=== PATIENT | female | born 1995 | race Caucasian/White ===

== ENCOUNTER → 2019-08-16 14:42 | Outpatient (CLI) | payer OTHER, SELFPAY ==
[2019-08-18 06:42] LABS: COVID19 Sendout Not Detected (Not Detected)
== END ==
PROVIDERS: Visit Provider Physician Assistant
DX: R50.9 Fever, unspecified (principal)
CPT/HCPCS: 87635

== ENCOUNTER 2020-03-05 10:23 | Emergency (ER) | payer OTHER, SELFPAY ==
[2020-03-05 10:41] VITALS: BP 123/54; PULSE 89; RESP 18; TEMP 37.3; O2SAT 99
--- NOTE | 2020-03-05 10:45 | PC.NURSE ---
pt states she was exposed by a covid coworker a few weeks ago.
[2020-03-05] MEDS: LIDOCAINE PATCH 1 EACH ADH..PATCH TOP (12:45)
[2020-03-05] MEDS: KETOROLAC 60 MG/2 ML VIAL 30 MG IM (12:45)
[2020-03-05] MEDS: CYCLOBENZAPRINE 10 MG TABLET PO (12:46)
--- NOTE | 2020-03-05 12:49 | ED.BACK ---
HPI - Back Pain/Injury <RANDI Traylor-BC - Last Filed: 03/05/20 14:14> General Chief Complaint: Back Pain/Injury Stated Complaint: Pain in back Time Seen by Provider: 03/05/20 12:06 Source: patient Mode of arrival: Ambulatory Limitations: no limitations History of Present Illness HPI Narrative: The patient is a 24-year-old female current everyday smoker who denies pertinent medical history who presents with a chief complaint of right-sided back and shoulder pain that started at 3:00 a.m.. 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 She states that she has had low-grade temperatures and muscle aches over the past 2 weeks. She states today her hips hurt as well as her right-sided back and shoulder. She took Tylenol for the pain, which did not improve the pain. She states it is worse with pressure and worse with moving her arm. She denies any falls or trauma. Related Data Previous Rx's Medication Instructions Recorded cyclobenzaprine 10 mg PO TID PRN #14 tab 03/05/20 ketorolac 10 mg PO TID PRN #14 tab 03/05/20 lidocaine 1 patch TOPICAL DAILY PRN #15 ea 03/05/20 Allergies Allergy/AdvReac Type Severity Reaction Status Date / Time No Known Drug Allergies Allergy Unverified 08/16/19 14:29 Review of Systems <RANDI Traylor-BC - Last Filed: 03/05/20 14:14> Review of Systems Narrative: GENERAL: Denies chills, fatigue, malaise, fever, sweats. HEENT: Denies sinus pain, ear pain, sore throat, difficulty swallowing, dizziness. RESPIRATORY: Denies dyspnea, cough, wheezing, hemoptysis, sputum. CARDIOVASCULAR: Denies chest pain, palpitations, orthopnea, edema, GASTROINTESTINAL: Denies nausea, vomiting, abdominal pain, diarrhea, constipation, melena. : Denies dysuria, frequency, incontinence, hematuria, urinary retention. MUSCULOSKELETAL: See HPI SKIN: Denies rash, skin lesions, or other NEUROLOGIC: Denies weakness, headache, numbness, change in speech, confusion, seizures, incoordination. PSYCHIATRIC: No concerning psychosocial issues. 12 point review of systems is negative except for those stated above Patient History <Yuki Salazar BLINDSTITCH HEMMER-BC - Last Filed: 03/05/20 14:14> Social History Smoking Status: Current every day smoker Smoking Status: Current every day smoker alcohol intake frequency: 0-2 drinks per day Substance Use Type: marijuana Exam <RANDI Traylor-BC - Last Filed: 03/05/20 14:14> Narrative Exam Narrative: GENERAL: This is a well-nourished, well-developed patient, in no acute distress HEAD: Atraumatic. Normocephalic. No temporal or scalp tenderness. EYES: Pupils equal round and reactive. Extraocular motions intact. No scleral icterus. No injection or drainage. ENT: Nose without bleeding, purulent drainage or septal hematoma. Wearing a mask Airway patent. NECK: Trachea midline. No JVD or lymphadenopathy. Supple, nontender, no meningeal signs. CARDIOVASCULAR: Regular rate and rhythm RESPIRATORY: Clear to auscultation. Breath sounds equal bilaterally. No wheezes, rales, or rhonchi. No cough. No increased respiratory effort. No accessory muscle use. GASTROINTESTINAL: Abdomen soft, non-tender, nondistended. No hepato-splenomegaly, or palpable masses. No guarding. EXTREMITIES: No clubbing, cyanosis, or edema. No joint tenderness, effusion, or edema noted. Using all extremities equally. BACK: Pain to palpation of right-sided paraspinal muscles between scapula and T-spine. No pain to midline palpation of CT or L-spine. NEURO: AOx3. SKIN: No rash or erythema on visible skin. No overlying erythema. Initial Vital Signs Initial Vital Signs: Vital Signs Temperature 99.2 F 03/05/20 10:41 Pulse Rate 89 03/05/20 10:41 Respiratory Rate 18 03/05/20 10:41 Blood Pressure 123/54 L 03/05/20 10:41 Pulse Oximetry 99 03/05/20 10:41 <Manuela Nichols DO - Last Filed: 03/10/20 18:09> Initial Vital Signs Initial Vital Signs: Vital Signs Temperature 99.2 F 03/05/20 10:41 Pulse Rate 89 03/05/20 10:41 Respiratory Rate 18 03/05/20 10:41 Blood Pressure 123/54 L 03/05/20 10:41 Pulse Oximetry 99 03/05/20 10:41 Scores <REBEKAH Traylor - Last Filed: 03/05/20 14:14> GCS Rollins coma scale eye opening: Spontaneous Rollins coma scale verbal response: Orientated Susannah coma scale motor response: Obey commands Rollins coma scale total score: 15 Course <REBEKAH Traylor - Last Filed: 03/05/20 14:14> Orders Ordered: Discontinued Medications Cyclobenzaprine HCl (Cyclobenzaprine 10 Mg Tablet) 10 mg PO NOW ONE Stop: 03/05/20 12:33 Last Admin: 03/05/20 12:46 Dose: 10 mg Documented by: EDGARDO Ketorolac Tromethamine (Ketorolac 60 Mg/2 Ml Vial) 30 mg IM NOW ONE Stop: 03/05/20 12:33 Last Admin: 03/05/20 12:45 Dose: 30 mg Documented by: EDGARDO Lidocaine (Lidocaine Patch 1 Each Adh..Patch) 1 each TOP NOW ONE Stop: 03/05/20 12:33 Last Admin: 03/05/20 12:45 Dose: 1 each Documented by: EDGARDO Vital Signs Vital signs: Vital Signs - 8 hr 03/05/20 10:41 Temperature 99.2 F Pulse Rate 89 Respiratory Rate 18 Blood Pressure 123/54 L Pulse Oximetry 99 <Manuela Nichols DO - Last Filed: 03/10/20 18:09> Orders Ordered: Discontinued Medications Cyclobenzaprine HCl (Cyclobenzaprine 10 Mg Tablet) 10 mg PO NOW ONE Stop: 03/05/20 12:33 Last Admin: 03/05/20 12:46 Dose: 10 mg Documented by: EDGARDO Ketorolac Tromethamine (Ketorolac 60 Mg/2 Ml Vial) 30 mg IM NOW ONE Stop: 03/05/20 12:33 Last Admin: 03/05/20 12:45 Dose: 30 mg Documented by: EDGARDO Lidocaine (Lidocaine Patch 1 Each Adh..Patch) 1 each TOP NOW ONE Stop: 03/05/20 12:33 Last Admin: 03/05/20 12:45 Dose: 1 each Documented by: EDGARDO Vital Signs Vital signs: Vital Signs - 8 hr 03/05/20 10:41 Temperature 99.2 F Pulse Rate 89 Respiratory Rate 18 Blood Pressure 123/54 L Pulse Oximetry 99 MDM - Back Pain/Injury <Yuki Salazar BLINDSTITCH HEMMER-BC - Last Filed: 03/05/20 14:14> Lab Data Labs: Lab Results 03/05/20 Range/Units 12:25 COVID-19 PCR Negative (Negative) Point of Care Testing Test Results Negative MDM Narrative Medical decision making narrative: The patient is a 24-year-old female who presents with a chief complaint of right-sided thoracic back pain upon movement and pressure. She appears well and nontoxic. 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 We discussed that x-rays at this point would not likely be beneficial as she denies any falls or trauma. Exam indicates muscle spasm as her pain is reproducible with movement and pressure. She feels much improved after the above-stated therapies and was discharged with these as prescriptions. She states that she does not want any narcotics as she does not want to be too sedated given her children. I discussed at length the importance of follow-up with primary care provider and gave her contact information to the [facility] health human resources partner. Patient has no questions or concerns upon discharge and states understanding return precautions as well as follow-up care. <Manuela Nichols DO - Last Filed: 03/10/20 18:09> Lab Data Labs: Lab Results 03/05/20 Range/Units 12:25 COVID-19 PCR Negative (Negative) Point of Care Testing Test Results Negative Discharge Plan Departure Patient Disposition: Home Clinical Impression: Exposure to 2019 novel coronavirus, Muscle spasm Thoracic back pain Qualifiers: Chronicity: acute Back pain laterality: right Qualified Code(s): M54.6 - Pain in thoracic spine Instructions: DI for Muscle Strain, DI for Back Spasm, Can COVID-19 be prevented? Activity Restrictions/Additional Instructions: Thank you for trusting us with your care today. Today your coronavirus test resulted negative. Your test was also negative. As discussed, your exam is consistent with muscle spasm. I sent 3 prescriptions to [facility]. I have given you a prescription of Toradol. This is an NSAID. Do not combine it with other NSAIDs such as Aleve or ibuprofen. I suggest taking it with some food, as it can irritate your stomach. I have also given a prescription of cyclobenzaprine. This can be sedating. Do not take and drive. Do not combine it with alcohol or any other sedating substances. I have also sent a prescription of lidocaine patches. This is a pain patch that can be placed on for 12 hours and then remove for [address] a new pack on. Do not use heat over it. I have given you contact information to the [facility] human resources partner. They can help much with primary care provider taking new patients. As discussed, please come back to the emergency department for any acute concerns. Prescriptions: New lidocaine 5 % adhesive patch,medicated 1 patch topical DAILY PRN (Reason: pain ) Qty: 15 RF: 0 cyclobenzaprine 10 mg tablet 10 mg PO TID PRN (Reason: muscle spasm) Qty: 14 RF: 0 ketorolac 10 mg tablet 10 mg PO TID PRN (Reason: pain) Qty: 14 RF: 0 Referrals: [facility] [Outside] <Manuela Nichols DO - Last Filed: 03/10/20 18:09> Cosign ED Attending Richardature Attestation: I was immediately available in the department for consultation. Documentation has been reviewed. I agree with assessment and plan.
[2020-03-05 13:07] LABS: COVID19 -Nasal RAPID Negative (Negative)
[2020-03-05 14:00] VITALS: BP 111/51; PULSE 60; RESP 16; O2SAT 100
== END 2020-03-05 14:25 | disposition home or self-care (01) ==
PROVIDERS: Emergency Provider Nurse Practitioner Family
DX: Z03.818 Encounter for observation for suspected exposure to other biological agents ruled out (principal); M62.830 Muscle spasm of back; M54.6 Pain in thoracic spine; R50.9 Fever, unspecified
CPT/HCPCS: 81025; 87635; 96372; 99281; 99283; STOP; J1885

== ENCOUNTER → 2020-08-30 15:44 | Outpatient (CLI) | payer OTHER, MEDICAID, SELFPAY ==
[2020-08-30 20:24] LABS: Appearance Urine UA CLEAR; Bilirubin Urine UA NEGATIVE (NEGATIVE); Color Urine UA YELLOW; Glucose Urine UA NEGATIVE (Negative); Ketones Urine UA NEGATIVE (NEGATIVE); Leukocyte Esterase Urine UA NEGATIVE (NEGATIVE); Nitrite Urine UA NEGATIVE (Negative); Occult Blood Urine UA NEGATIVE (Negative); Protein Urine UA NEGATIVE (Negative); Specific Gravity Urine UA <=1.005 (1.000-1.035); Urobilinogen Urine UA 0.2 E.U./dL (0.2)
== END ==
PROVIDERS: Visit Provider Obstetrics & Gynecology
DX: Z34.81 Encounter for supervision of other normal pregnancy, first trimester (principal)
CPT/HCPCS: 81003; 87086

== ENCOUNTER → 2020-09-12 09:53 | Outpatient (CLI) | payer OTHER, MEDICAID, SELFPAY ==
[2020-09-12 11:11] LABS: Add Manual Diff / Slide Review NO; Basophils Absolute Auto 0 /uL (0-100); Basophils Percent Auto 0.3 % (0-2); Eosinophils Absolute Auto 100 /uL (0-450); Eosinophils Percent Auto 0.9 % (2-4); Hematocrit 38.7 % (36-46); Lymphocytes Absolute Auto 1000 /uL (1100-4500); Lymphocytes Percent Auto 17.5 % (25-40); Mean Corpuscular HGB Conc 33.6 % (30-36); Mean Corpuscular Hemoglobin 29.6 PG (26-34); Mean Corpuscular Volume 88.1 fL (80-100); Monocytes Absolute Auto 500 /uL (0-900); Neutrophils Absolute Auto 4400 /uL (1500-7000); Neutrophils Percent Auto 73.3 % (50-75); Platelet Count 181 X10^3/uL (150-400); Red Cell Distribution Width 13.4 % (11.6-14.8)
[2020-09-13 05:37] LABS: RPR Screen Non Reactive (Non Reactive)
[2020-09-13 10:08] LABS: Varicella IgG Antibody 1704 index (Immune >165)
[2020-09-13 20:57] LABS: Hepatitis B Surface Antigen NEGATIVE s/c (NEGATIVE); Rubella Antibody IgG 42.4 IU/mL (>15)
[2020-09-13 21:08] LABS: HIV 1 & 2 Ab/Ag 4th Gen Combo NEGATIVE (NEGATIVE); Hep C Virus Ab w/Reflex Quant NEGATIVE s/c (NEGATIVE)
== END ==
PROVIDERS: Referring Provider Obstetrics & Gynecology; Visit Provider Obstetrics & Gynecology
DX: Z34.81 Encounter for supervision of other normal pregnancy, first trimester (principal)
CPT/HCPCS: 36415; 80055; 86787; 86803; 86850; 86900; 86901; 87389

== ENCOUNTER → 2020-10-15 11:10 | Outpatient (CLI) | payer OTHER, MEDICAID, SELFPAY ==
[2020-10-15 17:27] LABS: COVID-19 CEPHEID PCR (VTM/NP) Negative (Negative)
== END ==
PROVIDERS: Visit Provider Obstetrics & Gynecology
DX: Z20.822 Contact with and (suspected) exposure to COVID-19 (principal)
CPT/HCPCS: U0003

== ENCOUNTER 2020-10-16 11:23 | Day surgery (SDC) | payer OTHER, MEDICAID, SELFPAY ==
[2020-10-15 10:52] VITALS: BMI 23.8
[2020-10-16] VITALS (8 sets, daily range): BP systolic 97–111; BP diastolic 50–66; PULSE 63–81; RESP 16–20; TEMP 36.6; O2SAT 97–100; BMI 23.8
--- NOTE | 2020-10-16 | PATH_ITS ---
[facility] Accession Number: [id number] . 01 Material submitted: . product of conception - PRODUCTS OF CONCEPTION . 02 Diagnosis: Products of Conception: Products of conception identified. [facility] 10/19/2020 1638 Local . 02 Electronically signed: . Carmencita Hooks MD, Pathologist NPI- [id number] . 01 Gross description: . The specimen is received in formalin and labeled with products of conception. It consists of a 9.4 x 8.8 x 3.7 cm aggregate of pink-norton to june-brown, ragged, irregular soft tissue fragments admixed with clotted blood. Fragments of parts are identified. A heel-toe measurement is not identified. Stranner sections are submitted. . Summary of Sections: A1-A2 = parts, compliance representative, 2 pieces. A3-A4 = Remaining products of conception, compliance representative, 2 pieces. ([id number]) /[facility] 10/17/2020 1012 Local . 02 Pathologist provided ICD-10: O03.4 . 02 CPT . 334012 Performed at: 01 [facility] [address], [place], [place] [id number] MD Simone Montgomery MD Phone: [phone] [facility]formed at: [facility] [address] [place], [place] [id number] MD Lisa Burks MD Phone: [phone]
--- NOTE | 2020-10-16 10:12 | PM.HP.1 ---
History of Present Illness History of Present Illness Date Patient Seen: 10/16/20 Time Patient Seen: 12:23 [place] [facility] [place]ative: Patient is a 25-year-old 3 para 2 with a missed at 11 weeks. Patient presented for a routine visit on October 15, 2020. There was no heart motion. Patient History Medical History (Updated 10/15/20 @ 09:14 by Gely Plata MD) H/O depression, currently (~07/2015) Skin sensitivity (~2018) Surgical History (Updated 08/23/20 @ 10:16 by Rosaura Johnson RN) [place] teeth extracted (~2018) Family & Social History Family History (Updated 08/23/20 @ 10:22 by Rosaura Johnson RN) Grandmother Myocardial infarction Brother Bipolar 1 disorder Bone cancer Above knee amputation of left lower extremity Lung cancer Sister Bipolar 1 disorder Breast cancer Mother No problems noted. Father Alcoholic Grandfather No problems noted. Grandmother Alcoholic Grandfather Unknown family medical history Social History: household members significant other,children lives independently Yes caregiver/support person No Tobacco & Substance use: Smoking Status Former smoker alcohol intake former alcohol intake frequency 0-2 drinks per day Substance Use Type marijuana Meds Home Medications and Allergies Home Medications Medication Instructions Recorded Confirmed Type ferrous sulfate 325 mg (65 mg 325 mg PO DAILY 08/23/20 10/16/20 History iron) tablet (FeroSul) prenat.vits,emily,bih-fmzw-ygghm 1 tab PO DAILY 08/23/20 10/16/20 History Allergies Allergy/AdvReac Type Severity Reaction Status Date / Time No Known Drug Allergies Allergy Verified 10/16/20 11:06 Exam Narrative Exam Narrative: HEENT: No thyromegaly, no anterior cervical or supraclavicular lymphadenopathy. Lungs:Clear to auscultation bilaterally, no wheezes. Cardiovascular: Regular rate and rhythm, no murmurs, rubs, or gallops. Abdomen: No scars. No hepatosplenomegaly. No masses palpable. External genitalia: Normal Vagina: Normal Cervix: Parous Bimanual exam: 11 Week size uterus. Assessment & Plan Assessment & Plan narrative: Assessment: 25-year-old 3 para 2 with a missed at 11 weeks gestation Plan: Suction D&C The risks, benefits, and alternatives to the procedure were explained to the patient. The risks including bleeding, infection, and uterine perforation. She understands these risks and agrees to proceed. A full par Q was held and consent form was signed. COVID-19 COVID-19 status: Negative Result date/Date tested (Pos, Neg/Pending): 10/15/20 Time Spent With Patient Time with patient: 15-24 minutes
[2020-10-16] MEDS: LACTATED RINGERS 1,000 ML 100 ML IV (11:32)
--- NOTE | 2020-10-16 12:23 | PM.PREOP ---
Pre-operative Note COVID-19 COVID-19 status: Negative Result date/Date tested (Pos, Neg/Pending): 10/15/20 Interval Note History & Physical reviewed/Exam performed by Physician: Yes Changes to H&P: No H&P completed within 30 days and has changed as indicated here:: 10/16/20
--- NOTE | 2020-10-16 12:35 | SUR.OPER ---
Lithotomy on padded OR bed, head on pillow, arms secured on padded arm boards at <90 degrees abduction. Legs secured in padded yellow fins stirrups.
--- NOTE | 2020-10-16 12:44 | PM.GYNOP.1 ---
Operative Date/Time/Diagnoses Date of procedure: 10/16/20 Time of procedure: 12:44 Pre-op diagnosis: Missed AB at 11 weeks gestation Post-op diagnosis: same Procedure & Clinicians Procedure: Procedures Operation Date: 10/16/20 12:15 Actual Procedure Side Surgeon manuela Plata MD Indications: Missed Ab at 11 weeks gestation Surgeon: Gely Plata Anesthesia Type: General (LMA) Operative Notes Findings: 12 week size anteverted uterus Large amount of products conception Closure Type: not applicable Specimen(s): products of conception Estimated blood loss (mL): 200 Blood products transfused: none Procedure in detail: After informed consent was obtained, the patient was taken to the operating room where she was placed in the dorsal supine position. After adequate LMA general anesthesia was achieved, she was placed in the dorsal lithotomy position, and prepped and draped in the usual sterile fashion. A bivalve speculum was placed into the vagina and the anterior lip of the cervix was grasped with a single-tooth tenaculum. The cervical os was sequentially dilated to the # 11 curved Hegar dilator. The # 10 curved plastic curette passed easily into the endometrial cavity. Several passes with suction revealed blood and membranes. There was then a gush of clear fluid and tissue. The plastic curette was removed. Polyp forceps were used to remove a large piece of placenta. Several more passes with suction revealed tissue. The last pass with suction revealed blood only. Gentle sharp curettage was performed yielding blood only. One more pass with suction revealed blood only. The instruments were removed from the uterus. Single-tooth tenaculum was removed from the anterior lip of the cervix. The bivalve speculum was removed from the vagina. A bimanual exam was performed which revealed a well contracted 9 week size anteverted uterus. Sponge, lap, and instrument counts were correct x2. Patient tolerated the procedure well, and was taken to PACU in stable condition. Complications: none Post-operative Condition: stable Disposition: PACU Plan for aftercare: Home after recovery
--- NOTE | 2020-10-16 13:22 | SUR.PHASEI ---
Turned patient over and cleaned perineal area due to slow trickle of bleeding; peripad and support panties provided. Patient still denies any pain at this time. Felicitas pads provided for home; all discharge instructions reviewed with patient.
== END 2020-10-16 13:56 | disposition home or self-care (01) ==
PROVIDERS: Referring Provider Obstetrics & Gynecology; Visit Provider Obstetrics & Gynecology
PROC: (CPT 58120; principal; 2020-10-16 12:15)
DX: O02.1 Missed abortion (principal); Z3A.11 11 weeks gestation of pregnancy
CPT/HCPCS: 59820; J1100; J1885; J2250; J2405; J2590; J2704; J3010

== ENCOUNTER → 2021-02-18 15:38 | Outpatient (CLI) | payer OTHER, MEDICAID, SELFPAY ==
[2021-02-18 17:15] LABS: COVID19 -Nasal RAPID Negative (Negative)
== END ==
PROVIDERS: Referring Provider Obstetrics & Gynecology; Visit Provider Obstetrics & Gynecology
DX: Z34.81 Encounter for supervision of other normal pregnancy, first trimester (principal); Z20.822 Contact with and (suspected) exposure to COVID-19
CPT/HCPCS: 87635

== ENCOUNTER → 2021-03-18 08:22 | Outpatient (CLI) | payer OTHER, MEDICAID, SELFPAY ==
[2021-03-18 15:06] LABS: Appearance Urine UA CLEAR; Bilirubin Urine UA NEGATIVE (NEGATIVE); Color Urine UA YELLOW; Glucose Urine UA NEGATIVE (Negative); Ketones Urine UA NEGATIVE (NEGATIVE); Leukocyte Esterase Urine UA NEGATIVE (NEGATIVE); Nitrite Urine UA NEGATIVE (Negative); Occult Blood Urine UA NEGATIVE (Negative); Protein Urine UA NEGATIVE (Negative); Specific Gravity Urine UA 1.015 (1.000-1.035); Urobilinogen Urine UA 0.2 E.U./dL (0.2)
[2021-03-18 15:07] LABS: pH Urine UA 7.5 (4.5-8.0)
== END ==
PROVIDERS: Visit Provider Obstetrics & Gynecology
DX: Z34.81 Encounter for supervision of other normal pregnancy, first trimester (principal); Z3A.14 14 weeks gestation of pregnancy
CPT/HCPCS: 81003; 87086

== ENCOUNTER → 2021-04-30 09:05 | Outpatient (CLI) | payer OTHER, MEDICAID, SELFPAY ==
--- NOTE | 2021-04-30 09:06 | DI.US.S_ITS ---
PROCEDURE: US OB >= 14 WEEKS FETUS INDICATIONS: ANATOMY OUTSIDE/PRIOR DATING DATA: Last menstrual period (LMP): 12/10/2020 LMP-based estimated date of delivery (TALI): 09/16/2021. First dating scan (date and location): 02/18/2021. Estimated date of delivery (TALI) from first dating scan: 09/15/2021. The calculations are made using the ultrasound TALI of 09/15/2021. TECHNIQUE: Real-time scanning was performed of the fetus, with image documentation and biometric measurements. COMPARISON: [facility], , US OB <= 14 WEEKS FETUS, 02/18/2021, 15:33. FINDINGS: General: A single living intrauterine gestation is present. Presentation: Transverse. Placenta: Placental position is fundal , without previa. Amniotic fluid index: 20.6 cm, normal range is 5-24 cm. heart rate: 163 beats per minute. Maternal cervical canal: 4.9 cm long. Normal lower limit is 2.5 cm. biometrics: Biparietal diameter: 20 weeks 2 days Head circumference: 20 weeks Abdominal circumference: 20 weeks 4 days Femur length: 19 weeks 5 days Clinically estimated gestational age: 20 weeks 2 days Composite gestational age from present scan: 20 weeks 1 day Estimated weight and percentile: 338 g; 48th percentile Anatomic survey: Neuro: Ventricles are non-dilated at less than 10 mm. Cisterna magna is normal at 3-11 mm. Cerebellum is normal in size and morphology. Nuchal skin fold: Normal at less than 6 mm between 14-21 weeks gestational age. Face: Nose and lips, facial profile are normal. Spine: No evidence for spina bifida. Heart: 4-chambered heart is present, with normal ventricular outflow tracts. Diaphragm: Diaphragm is intact. Stomach: Left-sided stomach is present. Kidneys: No hydronephrosis. Normal is less than 5 mm in 2nd trimester, less than 7 mm in 3rd trimester. Cord: 3-vessel cord has orthotopic insertion. Bladder: Normal in size. Extremities: All 4 extremities identified. IMPRESSION: 1. Single living IUP redemonstrated and interval growth is normal. 2. Normal anatomic survey. We strive to produce accurate, complete, and clear reports of imaging services. To assist us in improving patient care, this report was composed using standard report templates and voice recognition software. Therefore, it may contain abnormal punctuation, insertions and/or omissions. Occasional wrong-word or sound-alike substitutions may occur. Though we review the report and make efforts to correct it, we do recommend that the report be read carefully in proper context to recognize any text inaccuracies. Dictated by: Adrien CHILDERS Interpreted: Ck Mejia MD on 04/30/2021 at 10:17 Transcribed by: JUNE on 04/30/2021 at 10:20 Approved by: Ck Mejia M.D. on 04/30/2021 at 11:29
== END ==
PROVIDERS: Referring Provider Obstetrics & Gynecology; Visit Provider Obstetrics & Gynecology
DX: Z34.82 Encounter for supervision of other normal pregnancy, second trimester (principal); Z3A.20 20 weeks gestation of pregnancy
CPT/HCPCS: 76811

== ENCOUNTER → 2021-06-07 13:52 | Outpatient (CLI) | payer OTHER, MEDICAID, SELFPAY ==
[2021-06-07 15:21] LABS: Hemoglobin 11.9 g/dL (12.0-16.0)
[2021-06-07 15:59] LABS: GTT (PREG) 1 Hour PP 50gm Dose 118 mg/dL (76-139)
== END ==
PROVIDERS: Referring Provider Obstetrics & Gynecology; Visit Provider Obstetrics & Gynecology
DX: Z34.82 Encounter for supervision of other normal pregnancy, second trimester (principal); Z3A.25 25 weeks gestation of pregnancy
CPT/HCPCS: 36415; 82950; 85014; 85018

== ENCOUNTER → 2021-08-29 16:51 | Outpatient (CLI) | payer OTHER, MEDICAID, SELFPAY ==
[2021-08-30 16:12] LABS: Strep Grp B PCR NEG for Grp B Strep
== END ==
PROVIDERS: Visit Provider Obstetrics & Gynecology
DX: Z34.83 Encounter for supervision of other normal pregnancy, third trimester (principal); Z3A.37 37 weeks gestation of pregnancy
CPT/HCPCS: 87653

== ENCOUNTER 2021-09-06 01:18 | Inpatient (IN) | payer OTHER, MEDICAID, SELFPAY ==
[2021-09-06 02:01] VITALS: BP 130/72
[2021-09-06 03:26] LABS: Add Manual Diff / Slide Review NO; Basophils Absolute Auto 0 /uL (0-100); Basophils Percent Auto 0.3 % (0-2); Eosinophils Absolute Auto 100 /uL (0-450); Eosinophils Percent Auto 0.7 % (2-4); Hematocrit 35.5 % (36-46); Hemoglobin 12.2 g/dL (12.0-16.0); Lymphocytes Absolute Auto 1500 /uL (1100-4500); Lymphocytes Percent Auto 18.5 % (25-40); Mean Corpuscular HGB Conc 34.5 % (30-36); Mean Corpuscular Hemoglobin 29.6 PG (26-34); Mean Corpuscular Volume 85.6 fL (80-100); Monocytes Absolute Auto 700 /uL (0-900); Monocytes Percent Auto 8.2 % (3-14); Neutrophils Absolute Auto 5800 /uL (1500-7000); Neutrophils Percent Auto 72.3 % (50-75); Platelet Count 162 X10^3/uL (150-400); Red Blood Cell Count 4.14 X10^6/uL (4.0-5.2); Red Cell Distribution Width 12.7 % (11.6-14.8)
[2021-09-06 03:41] LABS: COVID19 -Nasal RAPID Negative (Negative)
[2021-09-06] MEDS: LACTATED RINGERS 1,000 ML 100 ML IV (03:52)
--- NOTE | 2021-09-06 05:08 | P.PCN_ITS ---
[facility] Pre-procedure Procedure: Continuous Lumbar Epidural for L&D Attending OB provider: Gely Plata PMH/ROS narrative: term uncomplicated gestation arrives in active labor at 6 cm. FHT reassuring. Pt very uncomfortable ASA Class: II Labs: Hct 35.5 % (36-46) L 09/06/21 02:45 Plt Count 162 X10^3/uL (150-400) 09/06/21 02:45 Medications: Current Medications Generic Name Dose Route Start Last Admin Trade Name Freq PRN Reason Stop Dose Admin Carboprost Tromethamine 250 mcg 09/06/21 02:03 Carboprost 250 Mcg/Ml Ampul IM Q90M PRN Bleeding Diphenhydramine HCl 25 mg 09/06/21 04:00 Diphenhydramine 50 Mg/Ml Vial IV Q10M PRN Pruritis Lactated Ringer's 1,000 mls @ 100 mls/hr 09/06/21 02:15 09/06/21 03:52 Lactated Ringers IV 100 mls/hr CONT MELODY Administration Oxytocin/Lactated Ringer's 30 unit in 500 mls @ 200 mls/hr 09/06/21 02:03 Oxytocin Premix IV CONT PRN Bleeding Protocol Tranexamic Acid 1,000 mg/ 100 mls @ 200 mls/hr 09/06/21 02:03 Sodium Chloride IV NOW PRN Bleeding FENT 2MCG/ML BUPIV 0.125% EPI 200 mcg in 100 mls @ 6 mls/hr 09/06/21 04:00 Fentanyl/Bupiv/Ns 2mcg/Ml - 0.125% EPIDURAL CONT MELODY Methylergonovine Maleate 0.2 mg 09/06/21 02:03 Methylergonovine 0.2 Mg Tablet PO Q6HR PRN Heavy Bleeding Methylergonovine Maleate 0.2 mg 09/06/21 02:03 Methylergonovine 0.2 Mg/Ml Vial IM NOW PRN Bleeding Misoprostol 800 mcg 09/06/21 02:03 Misoprostol [address] NOW PRN Bleeding Misoprostol 1,000 mcg 09/06/21 02:03 [address]oprostol [address] NOW PRN Bleeding Misoprostol 400 mcg 09/06/21 02:03 Misoprostol 200 Mcg Tablet SL NOW PRN Bleeding Nalbuphine HCl 2.5 mg 09/06/21 04:00 Nalbuphine 20 Mg/Ml Ampul IV Q10M PRN Pruritis Oxytocin 10 unit 09/06/21 02:03 Oxytocin 10 Unit/Ml Vial IM NOW PRN Bleeding Allergies: Allergies Allergy/AdvReac Type Severity Reaction Status Date / Time No Known Drug Allergies Allergy Verified 08/29/21 16:14 Procedure Insertion date: 09/06/21 Insertion time: 04:34 Prep/Local: betadine x3 and 1% lidocaine Interspace: L 3-4 Patient position: sitting Needle: 18 gauge Hustead Loss of resistance with: saline ANAND at (cm): 5 Catheter placed at SKIN (cm): 11 Insertion: No CSF, No Blood, No Paresthesia with insertion, No Paresthesia with injection and No Test dose reaction Initial Medications TEST DOSE time: 05:00 Infusion INFUSION: 0.125% bupivacaine and with fentanyl 2 mcg/mL Initial rate (mL/hr): 9 Subsequent interventions: Note: No epidural infusions available in the local [facility], so CSE chosen for analgesic technique so as to provide comfort while the trust evaluation supervisor looked for additional medication. CSE done at 0434. SAB dose of bupi 2.5 g and Fentanyl 20 mcg instilled at 0434. Good onset of pain relief. Catheter advanced, transient left paresthesia occurred and resolved prior to full advancement of catheter. Secured. Pt now comfortable, so test dose deferred until pump set up. Post-procedure Anesthesia time START: 04:21 Anesthesia time END: 06:53 Post-procedure Anesthesia Assessment: Yes CV function: HR/BP stable, Yes Resp function: RR/sat/airway adequate, Yes Post-op hydration adequate, Yes Pain control adequate, Yes Nausea & vomiting absent, Yes Temperature > 36 C and Yes Mental status appropriate
[2021-09-06] MEDS: OXYTOCIN PREMIX 30 UNIT/500 ML PLAST..BAG 220 UNIT IV (07:00)
--- NOTE | 2021-09-06 07:14 | PM.OBHP.IH.1 ---
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 Estimated Delivery Date Method Current WG Current Estimate 09/16/21 LMP (Certain) 38w 4d Other Estimates 09/15/21 Ultrasound #1 38w 5d Estimated Gestational Age (weeks): 38+4 : 4 Para: 2 care: good care, initiated at week # (10), number of visits (10) and pounds weight gain (26) Dating criteria OB: LMP confirmed by 1st trimester US Ultrasounds: normal 1st trimester US and normal mid trimester US Obstetrical complications: none Medical complications OB: none Preadmission Labs Last OB Lab Results: Blood Type O Positive 09/06/21 02:45 09/06/21 Antibody Screen Negative 09/06/21 02:45 09/06/21 Hematocrit 35.5 % (36-46) L 09/06/21 02:45 09/06/21 Hemoglobin 12.2 g/dL (12.0-16.0) 09/06/21 02:45 09/06/21 Hepatitis B Surface Antigen Negative s/c (NEGATIVE) 09/12/20 10:05 09/12/20 Hepatitis C Antibody Negative s/c (NEGATIVE) 09/12/20 10:05 09/12/20 Rubella Antibody 42.4 IU/mL (>15) 09/12/20 10:05 09/12/20 Varicella-Zoster IgG Antibody 1704 index (Immune >165) 09/12/20 10:05 09/12/20 Glucose 1 Hour 118 mg/dL (76-139) 06/07/21 15:04 06/07/21 Group B Streptococcus (PCR) Neg for grp b strep 08/29/21 16:51 08/29/21 -: Urine: negative -: PAP smear: Normal External Labs -: Urine: negative Prior (ies) Past Pregnancies Del. Date GA/Weeks Labor Lgth Wt Sex Route Outcome Anesthesia Place Delv Breastfeed Preg Comp Name 05/29/14 39 11 6 lb 5 oz Female vaginal live - full term epidural IH w Merna 1.5 yrs. none Liza Shipley 07/13/15 35 5 7 lb 3 oz Male vaginal live - epidural IH w Merna 9 mos. labor delivery Dhara Galarza 10/15/20 11 spontaneous spontaneous Delivery Date: 10/15/20 Last Updated by: Rosaura Johnson R.N. with D&C. Evaluation Evaluation Baseline heart rate: 135 Variability: Moderate (11-25) monitor accelerations: Present Monitor Decelerations: Absent Contraction Frequency (minutes): 2 Uterine Contraction Intensity: Strong/Firm Status: Category l Dilation (cm): 10 Effacement (%): 100 station: +3 Position of cervix: anterior [facility] Medical History (Updated 08/01/21 @ 15:32 by Gely Plata MD) Anemia Anxiety H/O depression, currently (~07/2015) H/O delivery, currently (~07/13/15) Miscarriage (~10/15/20) Skin sensitivity (~2018) Surgical History (Updated 01/23/21 @ 22:23 by Kathleen Paul) Anesthesia History of dilatation and curettage (~10/15/20) Hematite teeth extracted (~2018) Family History (Updated 08/23/20 @ 10:22 by Rosaura Johnson RN) Grandmother Myocardial infarction Brother Bipolar 1 disorder Bone cancer Above knee amputation of left lower extremity Lung cancer Sister Bipolar 1 disorder Breast cancer Mother No problems noted. Father Alcoholic Grandfather No problems noted. Grandmother Alcoholic Grandfather Unknown family medical history Social History marital status: unmarried,living together details: 3 6 yr olds and a 5 yr old. number of children: 4 household members: significant other and children lives independently: Yes caregiver/support person: No housing: house pets and animals: Yes (1 Cat: aware. ) education level: college (Starting nursing school next fall. 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 ) current occupational exposures/hazards: No special singh needs: No seatbelt use: always working smoke detector in home: Yes fire extinguisher in home: Yes carbon monox detector in home: Yes firearms in home: No do you feel safe at home: Yes Smoking Status: Former smoker Tobacco: How many years used: 8 quit status: has quit before (Quit 08/09/20.) second hand exposure: No alcohol intake: former substance use type: marijuana (Used to smoke weed. Stopped with .) during the past year weight has: remained stable well-balanced diet: daily or most days daily servings fruits/ve-4 caffeine: No eating out: rarely or never Type(s) of exercise: walking and normal ROM and activity frequency: daily duration: 30-45 minutes/day Meds Home Medications and Allergies Home Medications Medication Instructions Recorded Confirmed Type ferrous sulfate 325 mg (65 mg 325 mg PO DAILY 08/23/20 09/06/21 History iron) tablet (FeroSul) prenat.vits,emily,ehq-urgz-xgmeb 1 tab PO DAILY 08/23/20 09/06/21 History doxylamine succinate 25 mg tablet 25 mg PO BEDTIME PRN 02/08/21 09/06/21 History (Unisom (doxylamine)) pyridoxine (vitamin B6) 50 mg 50 mg PO DAILY 02/08/21 09/06/21 History tablet Allergies Allergy/AdvReac Type Severity Reaction Status Date / Time No Known Drug Allergies Allergy Verified 08/29/21 16:14 OB Exam Narrative Exam Narrative: Generally: Patient comfortable with epidural Lungs: Clear to auscultation bilaterally Cardiovascular: Regular rate and rhythm Fundal height: 38 cm Estimated weight: 7 lb Extremities: No edema Objective Labs Result Diagrams: 09/06/21 02:45 Labs: Laboratory Results - last 24 hr 09/06/21 09/06/21 09/06/21 02:45 02:45 02:45 WBC 8.0 RBC 4.14 Hgb 12.2 Hct 35.5 L MCV 85.6 MCH 29.6 MCHC 34.5 RDW 12.7 Plt Count 162 Neut % (Auto) 72.3 Lymph % (Auto) 18.5 L [place] % (Auto) 8.2 Eos % (Auto) 0.7 L Baso % (Auto) 0.3 Neut # (Auto) 5800 Lymph # (Auto) 1500 [place] # (Auto) 700 Eos # (Auto) 100 Baso # (Auto) 0 SARS-CoV-2 (PCR) Negative Blood Type O Positive Antibody Screen Negative Assessment and Plan Assessment and Plan Assessment and Plan narrative: Assessment: 26-year-old 4 para 2 at 38-,4/7 weeks gestation in active labor, second stage Plan: Expected management to spontaneous vaginal delivery Time Spent with Patient Total time spent with greater than 50% in coordination of care (as documented) at patient's floor/unit and/or counseling patient:: 15-24 minutes
--- NOTE | 2021-09-06 07:36 | P.PCNOB_ITS ---
Labor & Delivery Delivery date: 09/06/21 Intrapartal Events: None Cervical ripening method: none Induction method: none Delivery monitor: external FHT and external uterine Route of delivery: Episiotomy description: None L&D Laceration Description: Superficial (vaginal) Delivery repair: chromic Estimated blood loss (mL): 100 Anesthesia Type: Epidural Complications: None Narrative: Patient complete and pushed with 2 contractions. At 6:53 a.m., a live male infant delivered spontaneously in the SMITH presentation. No nuchal cord. The remainder of the body delivered without difficulty and was placed on mom's abdomen. The cord was double clamped and cut after it stopped pulsing. Pitocin was given in the IV fluids. Cord bloods were obtained. The placenta delivered intact with a three-vessel cord at 7:00 a.m. The fundus was massaged to firm. There was a superficial laceration on the left side of the vagina which was closed with 4-0 chromic in a [id number] suture. Hemostasis was achieved. Apgars 9 at 1 minute and 9 at 5 minutes. Estimated blood loss 100 cc. Epidural analgesia. . Mom and stable to recovery. [place] Baby 1: gender: Male Presentation: vertex Position: Left Occiput Anterior Placenta delivery description: Spontaneous Cord Vessel Description: 3 Vessels score (1 min): 9 score (5 min): 9 weight: 6 lb 8.9 oz Plan for aftercare: Routine care
[2021-09-06] MEDS: LANOLIN OINT 7 GM 1 APPLIC TOP (09:31)
[2021-09-06] MEDS: PRENATAL VIT,CALC/IRON/FOLIC 1 TABLET 1 TAB PO (09:32)
[2021-09-06] MEDS: KETOROLAC 30 MG/ML VIAL IV ×3 (09:32→23:57)
[2021-09-06] MEDS: DOCUSATE 100 MG CAPSULE PO (09:32)
[2021-09-06] MEDS: ACETAMINOPHEN 325 MG TABLET 650 MG PO ×2 (15:01→21:00)
[2021-09-07] MEDS: KETOROLAC 30 MG/ML VIAL IV (06:17)
[2021-09-07 06:56] LABS: Hematocrit 35.9 % (36-46); Hemoglobin 12.4 g/dL (12.0-16.0)
[2021-09-07] MEDS: PRENATAL VIT,CALC/IRON/FOLIC 1 TABLET 1 TAB PO (09:55)
[2021-09-07] MEDS: ACETAMINOPHEN 325 MG TABLET 650 MG PO (09:55)
[2021-09-07] MEDS: DOCUSATE 100 MG CAPSULE PO (09:55)
[2021-09-07 10:47] VITALS: BP 99/51; PULSE 78; RESP 16; TEMP 36.6
== END 2021-09-07 11:21 | disposition home or self-care (01) | DRG 560 ==
PROVIDERS: Admitting Provider Obstetrics & Gynecology; PCP Obstetrics & Gynecology; Visit Provider Obstetrics & Gynecology
DX: O70.0 First degree perineal laceration during delivery (principal); Z3A.38 38 weeks gestation of pregnancy; Z37.0 Single live birth; Z20.822 Contact with and (suspected) exposure to COVID-19
CPT/HCPCS: 01967; 36415; 59050; 59409; 85014; 85018; 85025; 86850; 86900; 86901; 87635; C9803; G0379; J1885; J2590

== ENCOUNTER → 2024-02-19 | Outpatient (CLI) | payer OTHER, SELFPAY | PROVIDERS: PCP Obstetrics & Gynecology; Referring Provider Internal Medicine; Visit Provider Internal Medicine | DX: Z23 Encounter for immunization (principal) | CPT/HCPCS: 90471; 90656 ==